=== PATIENT | female | born 1990 | race Caucasian/White ===

== ENCOUNTER 2022-05-25 09:15 | Emergency (ER) | payer MEDICAID, SELFPAY ==
--- NOTE | ~2022-05-25 | US_ITS ---
EXAMINATION: US PELVIS CLINICAL INFORMATION: Ovarian pain COMPARISON: None TECHNIQUE: Ultrasound of the pelvis is performed using both transabdominal and transvaginal transducers along with Doppler. Transvaginal imaging is performed due to inadequate visualization transabdominally. FINDINGS: Uterus: Patient is status post hysterectomy and right oophorectomy Adnexa: No abnormal right adnexal mass is appreciated. Left ovary measures 2.7 x 3.1 x 2.0 cm. Volume of 8.8 mL. No left ovarian or adnexal abnormality is appreciated. US/US pelvic and transvaginal IMPRESSION: Status post hysterectomy and right oophorectomy No significant abnormality appreciated.
[2022-05-25 09:59] VITALS: BP 117/75; PULSE 62; RESP 18; TEMP 36.6; O2SAT 99; BMI 36.6
[2022-05-25 10:21] LABS: MANUAL DIFF FLAG NO
[2022-05-25 10:23] LABS: Basophils Percent Auto 0.3 % (0-2); Eosinophils Absolute Auto 0.1 X10*3/uL (0.0-0.4); Eosinophils Percent Auto 0.7 % (0-4); Hematocrit 41.6 % (37.0-47.0); Hemoglobin 13.2 g/dl (12.0-16.0); Imm Gran Abs Auto 0.03 X10*3/uL (0.00-0.03); Imm Gran Pct Auto 0.4 % (0.0-0.4); Lymphocytes Absolute Auto 2.2 X10*3/uL (1.2-4.9); Lymphocytes Percent Auto 28.6 % (20-40); Mean Corpuscular HGB Conc 31.7 g/dl (31.0-35.0); Mean Corpuscular Volume 85.1 fL (80.0-98.0); Mean Platelet Volume 12.1 fL (9.4-12.3); Monocytes Absolute Auto 0.5 X10*3/uL (0.1-1.2); Monocytes Percent Auto 6.9 % (2-11); Neutrophils Absolute Auto 4.8 x10*3/uL (2.0-8.3); Neutrophils Percent Auto 63.1 % (45-73); Platelet Count 187 X10*3/uL (160-400); Red Blood Count 4.89 X10*6/uL (4.20-5.50); Red Cell Distribution Width 14.2 % (11.0-16.0); White Blood Count 7.6 X10*3/uL (4.8-10.8)
[2022-05-25 10:29] LABS: Appearance Urine Turbid; Color Urine Yellow; Glucose Urine UA Negative (Negative); Leukocyte Esterase Urine Trace (Negative); Nitrite Urine Negative (Negative); PH 8.5 (5.0-9.0); Specific Gravity - Urine 1.015 (1.005-1.025); UMIC TRIGGER UACC YES; Urine Blood Negative (Negative); Urine Ketones Negative (Negative); Urine Protein Negative (Neg-Trace)
[2022-05-25 10:32] LABS: Bacteria Urine Trace (None Seen); Hyaline Casts Urine 0-2 /LPF (0-2); WBC Urine 0-5 /HPF (0-5)
[2022-05-25 10:45] LABS: COVID-19 Test Negative (Negative); IDNOW Serial# BCCEAD1C
[2022-05-25 10:49] LABS: Anion Gap 13 (12-20); Blood Urea Nitrogen 10 mg/dL (9-16); Calcium 9.4 mg/dL (8.4-10.2); Carbon Dioxide 26 mmol/L (22-29); Chloride 106 mmol/L (96-108); Creatinine Clr Calc Pharmacy 120.4; Estimated Glomerular Filt Rate > 60; Glucose Random 80 mg/dL (60-115); Potassium 3.8 mmol/L (3.3-5.1); Sodium 141 mmol/L (135-145)
[2022-05-25 11:28] VITALS: BP 124/85; PULSE 61; RESP 16; TEMP 36.6; O2SAT 99
--- NOTE | 2022-05-25 11:36 | ED_ITS ---
HPI - General Adult General Chief complaint: Abdominal Pain <QUINTON Sheets Last Filed: 05/25/22 14:59> Stated complaint: bladder pain <QUINTON Sheets Last Filed: 05/25/22 14:59> Time Seen by Provider: 05/25/22 11:31 <QUINTON Sheets Last Filed: 05/25/22 14:59> Source: patient and tobacco roller <QUINTON Sheets Last Filed: 05/25/22 14:59> Mode of arrival: ambulatory <UQINTON Sheets Last Filed: 05/25/22 14:59> Limitations: language barrier <QUINTON Sheets Last Filed: 05/25/22 14:59> History of Present Illness HPI narrative: Patient is a 32 year old assigned female at with a history of hysterectomy with right sided oopherectomy presenting to the emergency department today with left sided abdominal pain and blood in her urine. Patient states that for the last few days she has had left sided abdominal pain and blood in her urine. 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 Patient denies any dizziness, lightheadedness, nausea, vomiting, fever, chills, blurry vision, double vision, loss of vision, chest pain, difficulty breathing, shortness of breath, back pain, night sweats, pain with urination, increased urinary frequency, increased urinary urgency, blood in her stool, syncope or a near syncopal episode, recent trauma or falls, bowel incontinence, bladder incontinence, bowel retention, bladder retention, or any other complaints at this time. <QUINTON Sheets - Last Filed: 05/25/22 14:59> Onset (ago): day(s) <QUINTON Sheets - Last Filed: 05/25/22 14:59> Location: abdomen <QUINTON Sheets Last Filed: 05/25/22 14:59> Radiation: non-radiation <QUINTON Sheets Last Filed: 05/25/22 14:59> Severity: mild <QUINTON Sheets Last Filed: 05/25/22 14:59> Severity scale (1-10): 3 <QUINTON Sheets - Last Filed: 05/25/22 14:59> Pain Consistency: constant <QUINTON Sheets - Last Filed: 05/25/22 14:59> Relieving factors: none <QUINTON Sheets - Last Filed: 05/25/22 14:59> Exacerbating factors: none <QUINTON Sheets - Last Filed: 05/25/22 14:59> Associated symptoms: denies other symptoms <QUINTON Sheets - Last Filed: 05/25/22 14:59> Treatments prior to arrival: none <QUINTON Sheets - Last Filed: 05/25/22 14:59> Related Data Home medications: Previous Rx's Medication Instructions Recorded cephalexin 500 mg capsule 500 mg PO Q6H 7 days #28 caps 05/25/22 <QUINTON Sheets - Last Filed: 05/25/22 14:59> Allergies/adverse reactions: Allergies Allergy/AdvReac Type Severity Reaction Status Date / Time No Known Allergies Allergy Verified 05/25/22 09:58 <QUINTON Sheets - Last Filed: 05/25/22 14:59> Review of Systems Constitutional: Constitutional: Reports no additional constitutional complaints, Denies chills, Denies fever(s) and Denies night sweats <QUINTON Sheets - Last Filed: 05/25/22 14:59> Eyes: Eyes: Reports no additional eye complaints, Denies blurry vision, Denies change in vision, Denies diplopia, Denies eye discharge, Denies loss of vision and Denies eye pain <QUINTON Sheets - Last Filed: 05/25/22 14:59> ENT: Denies dizziness <QUINTON Sheets - Last Filed: 05/25/22 14:59> Cardiovascular: Cardiovascular: Reports no additional cardiovascular complaints, Denies chest pain, Denies lightheadedness, Denies Loss of Consciousness and Denies dyspnea <QUINTON Sheets - Last Filed: 05/25/22 14:59> Respiratory: Respiratory: Reports no additional respiratory complaints and Denies dyspnea <QUINTON Sheets - Last Filed: 05/25/22 14:59> Gastrointestinal: Gastrointestinal: Reports no additional gastrointestinal complaints, Reports abdominal pain, Denies melena, Denies hematochezia, Denies change in bowel habits and Denies change in stool character <QUINTON Sheets - Last Filed: 05/25/22 14:59> Genitourinary: Genitourinary: Reports hematuria, Denies urinary frequency, Denies dysuria, Denies urinary incontinence, Denies urinary hesitancy and Denies urinary urgency <QUINTON Sheets - Last Filed: 05/25/22 14:59> Musculoskeletal: Musculoskeletal: Reports no additional musculoskeletal comp laints, Denies numbness and Denies tingling <QUINTON Sheets - Last Filed: 05/25/22 14:59> Neurologic: Denies dizziness, Denies loss of vision, Denies numbness and Denies tingling <QUINTON Sheets - Last Filed: 05/25/22 14:59> Psychiatric: Psychiatric: Reports no additional psychiatric complaints <QUINTON Sheets - Last Filed: 05/25/22 14:59> Endocrine: Endocrine: Reports no additional endocrine complaints <QUINTON Sheets - Last Filed: 05/25/22 14:59> Hematologic/Lymphatic: Hematologic/Lymphatic: Reports no additional hematologic/lymphatic complaints <QUINTON Sheets - Last Filed: 05/25/22 14:59> Allergic/Immunologic: Allergic/Immunologic: Reports no additional allergic/immunologic complaints <QUINTON Sheets - Last Filed: 05/25/22 14:59> PMF Past Medical History Attestation statement: The following information was validated with the patient. <QUINTON Sheets - Last Filed: 05/25/22 14:59> Source: old records reviewed and nursing notes reviewed <QUINTON Sheets - Last Filed: 05/25/22 14:59> Social History Social History: Social History Advance Directives: No <QUINTON Sheets - Last Filed: 05/25/22 14:59> Physical Exam ED Vital Signs: Vital Signs - 24 hr 05/25/22 09:59 05/25/22 11:28 Temperature 97.8 F 97.9 F Pulse Rate 62 61 Respiratory Rate 18 16 Blood Pressure 117/75 124/85 Pulse Oximetry 99 99 Oxygen Delivery Method Room Air Room Air BMI result Body Mass Index 36.6 <QUINTON Sheets - Last Filed: 05/25/22 14:59> Vital Signs - 24 hr 05/25/22 09:59 05/25/22 11:28 Temperature 97.8 F 97.9 F Pulse Rate 62 61 Respiratory Rate 18 16 Blood Pressure 117/75 124/85 Pulse Oximetry 99 99 Oxygen Delivery Method Room Air Room Air BMI result Body Mass Index 36.6 <Alexx Blancas MD - Last Filed: 05/29/22 11:38> Const General: cooperative, no acute distress, alert and awake <QUINTON Sheets - Last Filed: 05/25/22 14:59> Nutritional Appearance: well nourished <QUINTON Sheets - Last Filed: 05/25/22 14:59> Orientation/consciousness: patient oriented x3 <QUINTON Sheets - Last Filed: 05/25/22 14:59> Limitations: no limitations <QUINTON Sheets - Last Filed: 05/25/22 14:59> HENMT Head: Yes normal to inspection and Yes atraumatic <QUINTON Sheets - Last Filed: 05/25/22 14:59> Ears: hearing grossly normal bilaterally and external ears normal <QUINTON Sheets - Last Filed: 05/25/22 14:59> General nose exam: Normal external nose present, no nasal discharge noted and no epistaxis <QUINTON Sheets - Last Filed: 05/25/22 14:59> Face and sinus: Yes normal facial exam, No abrasion and No laceration <QUINTON Sheets - Last Filed: 05/25/22 14:59> Mouth: Normal oral and palatal mucosa present, no drooling and no muffled voice <QUINTON Sheets - Last Filed: 05/25/22 14:59> Eyes General: appearance normal, both eyes and all related structures <QUINTON Sheets - Last Filed: 05/25/22 14:59> Periorbital: periorbital findings normal <QUINTON Sheets - Last Filed: 05/25/22 1 4:59> Eyelids: Yes eyelids normal <QUINTON Sheets - Last Filed: 05/25/22 14:59> Conjunctivae: conjunctivae normal <Allie Aviles PA - Last Filed: 05/25/22 14:59> Pupils: Equal, round and reactive pupils present <Allie Aviles PA - Last Filed: 05/25/22 14:59> EOM: EOMs intact bilaterally <Allie Aviles PA - Last Filed: 05/25/22 14:59> Neck Neck: Yes normal visual inspection, Yes full ROM and Yes no lymphadenopathy <Allie Aviles PA - Last Filed: 05/25/22 14:59> Chest Chest palpation & inspection: normal inspection of the chest <Allie Aviles PA - Last Filed: 05/25/22 14:59> Resp Effort & Inspection: normal respiratory effort and able to speak in complete sentences <Allie Aviles PA - Last Filed: 05/25/22 14:59> Auscultation: clear to auscultation bilaterally <Allie Aviles CA - Last Filed: 05/25/22 14:59> Cardio Rate: regular rate <Allie Aviles PA - Last Filed: 05/25/22 14:59> Rhythm: regular rhythm <Allie Aviles PA - Last Filed: 05/25/22 14:59> GI Inspection: Yes normal to inspection <Allie Aviles CA - Last Filed: 05/25/22 14:59> Palpation (GI): Soft to palpation, not firm, nontender and no guarding <Allie Aviles CA - Last Filed: 05/25/22 14:59> Neuro General: patient oriented x3 and moves all extremities <Allie Aviles PA - Last Filed: 05/25/22 14:59> Cranial nerves: Yes Equal, round and reactive pupils present <Allie Aviles PA - Last Filed: 05/25/22 14:59> Cognition (Neuro): normal cognition <Allie Aviles PA - Last Filed: 05/25/22 14:59> Motor exam (neuro): 5/5 motor strength present throughout <Allie Aviles PA - Last Filed: 05/25/22 14:59> Sensory Exam: Normal double simultaneous stimulation for sensation <Allie Madsenming, PA - Last Filed: 05/25/22 14:59> Coordination: [id number] test normal <Alliealdair MadsenQUINTON christie - Last Filed: 05/25/22 14:59> Extrem General: Yes normal to inspection, Yes full ROM and Yes capillary refill normal <Allie QUINTON Aviles - Last Filed: 05/25/22 14:59> Psych Appearance: grossly normal <QUINTON Sheets - Last Filed: 05/25/22 14:59> Mental Status: mental status grossly normal <QUINTON Sheets - Last Filed: 05/25/22 14:59> Affect: normal affect <QUINTON Sheets - Last Filed: 05/25/22 14:59> Attitude: cooperative <QUINTON Sheets - Last Filed: 05/25/22 14:59> Thought process: Normal thought process present <QUINTON Sheets Last Filed: 05/25/22 14:59> Thought content: Normal thought content present <QUINTON Sheets Last Filed: 05/25/22 14:59> Insight: Good insight present (Psych) <QUINTON Sheets Last Filed: 05/25/22 14:59> Medical Decision Making Medical Decision Making MDM Narrative: Patient is a 32 year old assigned female at with a history of hysterectomy and right sided oopherectomy presenting to the emergency department today with left sided abdominal pain and blood in her urine. Patient's physical exam was unremarkable. Patient's blood work was unremarkable. Patient's urine showed a urinary tract infection. Patient's transvaginal US showed no acute process of the left ovary and confirmed the absence of the uterus and the right ovary. Patient's clinical presentation is not consistent with sepsis (@1400). I explained my physical exam findings as well as all test results to the patient. I answered all questions asked by the patient. I stressed the importance of the patient taking her medication as prescribed. I stressed the importance of the patient following up with her primary care provider and an OBGYN. I stressed the importance of the patient returning to the emergency department immediately if her symptoms were to worsen or if she were to develop any dizziness, shortness of breath, difficulty breathing, chest pain, blurry vision, loss of vision, nausea, vomiting, abdominal pain, fever, chills, back pain, or any other complaints. Patient verbalized agreement and understanding with this treatment plan and discharge. <QUINTON Sheets - Last Filed: 05/25/22 14:59> Differential Diagnosis Differential Diagnoses: The differential diagnosis associated with the presentation includes <QUINTON Sheets - Last Filed: 05/25/22 14:59> UTI <QUINTON Sheets - Last Filed: 05/25/22 14:59> Lab Data MDM Lab Attestation statement: I reviewed the patient's lab results. <QUINTON Sheets - Last Filed: 05/25/22 14:59> Result Diagrams: 05/25/22 10:12 05/25/22 10:12 <QUINTON Sheets - Last Filed: 05/25/22 14:59> Labs: Lab Results 05/25/22 05/25/22 05/25/22 Range/Units 10:07 10:08 10:12 WBC 7.6 (4.8-10.8) X10*3/uL RBC 4.89 (4.20-5.50) X10*6/uL Hgb 13.2 (12.0-16.0) g/dl Hct 41.6 (37.0-47.0) % MCV 85.1 (80.0-98.0) fL MCH 27.0 (27.0-33.0) pg MCHC 31.7 (31.0-35.0) g/dl RDW 14.2 (11.0-16.0) % Plt Count 187 (160-400) X10*3/uL MPV 12.1 (9.4-12.3) fL Immature Gran % (Auto) 0.4 (0.0-0.4) % Neut % (Auto) 63.1 (45-73) % Lymph % (Auto) 28.6 (20-40) % [place] % (Auto) 6.9 (2-11) % Eos % (Auto) 0.7 (0-4) % Baso % (Auto) 0.3 (0-2) % Lymph # (Auto) 2.2 (1.2-4.9) X10*3/uL [place] # (Auto) 0.5 (0.1-1.2) X10*3/uL Eos # (Auto) 0.1 (0.0-0.4) X10*3/uL Baso # (Auto) 0.0 (0.0-0.2) X10*3/uL Abs Immat Gran (auto) 0.03 (0.00-0.03) X10*3/uL Absolute Neuts (auto) 4.8 (2.0-8.3) x10*3/uL Absolute Nucleated RBC 0.000 (0.0-0.012) X10*3/uL Nucleated RBC % (auto) 0.0 (0.0-0.2) /100WBC Sodium (135-145) mmol/L Potassium (3.3-5.1) mmol/L Chloride (96-108) mmol/L Carbon Dioxide (22-29) mmol/L Anion Gap (12-20) BUN (9-16) mg/dL Creatinine (0.5-1.4) mg/dL Estim Creat Clear Calc Estimated GFR Random Glucose (60-115) mg/dL Calcium (8.4-10.2) mg/dL Beta HCG, Quant mIU/mL Urine Color Yellow Urine Appearance Turbid Urine pH 8.5 (5.0-9.0) Ur Specific Viola 1.015 (1.005-1.025) Urine Protein Negative (Neg-Trace) mg/dL Urine Glucose (UA) Negative (Negative) mg/dL Urine Ketones Negative (Negative) mg/dL Urine Blood Negative (Negative) Urine Nitrite Negative (Negative) Ur Leukocyte Esterase Trace H (Negative) Urine RBC 3-5 H (0-2) /HPF Urine WBC 0-5 (0-5) /HPF Ur Squamous Epith Cells 6-10 (0-2) /HPF Urine Bacteria Trace (None Seen) Hyaline Casts 0-2 (0-2) /LPF COVID-19 (NAHOMI) Negative (Negative) COVID-19 Clin Com See Note 05/25/22 Range/Units 10:12 WBC (4.8-10.8) X10*3/uL RBC (4.20-5.50) X10*6/uL Hgb (12.0-16.0) g/dl Hct (37.0-47.0) % MCV (80.0-98.0) fL MCH (27.0-33.0) pg MCHC (31.0-35.0) g/dl RDW (11.0-16.0) % Plt Count (160-400) X10*3/uL MPV (9.4-12.3) fL Immature Gran % (Auto) (0.0-0.4) % Neut % (Auto) (45-73) % Lymph % (Auto) (20-40) % [place] % (Auto) (2-11) % Eos % (Auto) (0-4) % Baso % (Auto) (0-2) % Lymph # (Auto) (1.2-4.9) X10*3/uL [place] # (Auto) (0.1-1.2) X10*3/uL Eos # (Auto) (0.0-0.4) X10*3/uL Baso # (Auto) (0.0-0.2) X10*3/uL Abs Immat Gran (auto) (0.00-0.03) X10*3/uL Absolute Neuts (auto) (2.0-8.3) x10*3/uL Absolute Nucleated RBC (0.0-0.012) X10*3/uL Nucleated RBC % (auto) (0.0-0.2) /100WBC Sodium 141 (135-145) mmol/L Potassium 3.8 (3.3-5.1) mmol/L Chloride 106 (96-108) mmol/L Carbon Dioxide 26 (22-29) mmol/L Anion Gap 13 (12-20) BUN 10 (9-16) mg/dL Creatinine 0.71 (0.5-1.4) mg/dL Estim Creat Clear Calc 120.4 Estimated GFR > 60 Random Glucose 80 (60-115) mg/dL Calcium 9.4 (8.4-10.2) mg/dL Beta HCG, Quant < 2 mIU/mL Urine Color Urine Appearance Urine pH (5.0-9.0) Ur Specific Viola (1.005-1.025) Urine Protein (Neg-Trace) mg/dL Urine Glucose (UA) (Negative) mg/dL Urine Ketones (Negative) mg/dL Urine Blood (Negative) Urine Nitrite (Negative) Ur Leukocyte Esterase (Negative) Urine RBC (0-2) /HPF Urine WBC (0-5) /HPF Ur Squamous Epith Cells (0-2) /HPF Urine Bacteria (None Seen) Hyaline Casts (0-2) /LPF COVID-19 (NAHOMI) (Negative) COVID-19 Clin Com <QUINTON Sheets - Last Filed: 05/25/22 14:59> Lab Results 05/25/22 05/25/22 05/25/22 Range/Units 10:07 10:08 10:12 WBC 7.6 (4.8-10.8) X10*3/uL RBC 4.89 (4.20-5.50) X10*6/uL Hgb 13.2 (12.0-16.0) g/dl Hct 41.6 (37.0-47.0) % MCV 85.1 (80.0-98.0) fL MCH 27.0 (27.0-33.0) pg MCHC 31.7 (31.0-35.0) g/dl RDW 14.2 (11.0-16.0) % Plt Count 187 (160-400) X10*3/uL MPV 12.1 (9.4-12.3) fL Immature Gran % (Auto) 0.4 (0.0-0.4) % Neut % (Auto) 63.1 (45-73) % Lymph % (Auto) 28.6 (20-40) % [place] % (Auto) 6.9 (2-11) % Eos % (Auto) 0.7 (0-4) % Baso % (Auto) 0.3 (0-2) % Lymph # (Auto) 2.2 (1.2-4.9) X10*3/uL [place] # (Auto) 0.5 (0.1-1.2) X10*3/uL Eos # (Auto) 0.1 (0.0-0.4) X10*3/uL Baso # (Auto) 0.0 (0.0-0.2) X10*3/uL Abs Immat Gran (auto) 0.03 (0.00-0.03) X10*3/uL Absolute Neuts (auto) 4.8 (2.0-8.3) x10*3/uL Absolute Nucleated RBC 0.000 (0.0-0.012) X10*3/uL Nucleated RBC % (auto) 0.0 (0.0-0.2) /100WBC Sodium (135-145) mmol/L Potassium (3.3-5.1) mmol/L Chloride (96-108) mmol/L Carbon Dioxide (22-29) mmol/L Anion Gap (12-20) BUN (9-16) mg/dL Creatinine (0.5-1.4) mg/dL Estim Creat Clear Calc Estimated GFR Random Glucose (60-115) mg/dL Calcium (8.4-10.2) mg/dL Beta HCG, Quant mIU/mL Urine Color Yellow Urine Appearance Turbid Urine pH 8.5 (5.0-9.0) Ur Specific Viola 1.015 (1.005-1.025) Urine Protein Negative (Neg-Trace) mg/dL Urine Glucose (UA) Negative (Negative) mg/dL Urine Ketones Negative (Negative) mg/dL Urine Blood Negative (Negative) Urine Nitrite Negative (Negative) Ur Leukocyte Esterase Trace H (Negative) Urine RBC 3-5 H (0-2) /HPF Urine WBC 0-5 (0-5) /HPF Ur Squamous Epith Cells 6-10 (0-2) /HPF Urine Bacteria Trace (None Seen) Hyaline Casts 0-2 (0-2) /LPF COVID-19 (NAHOMI) Negative (Negative) COVID-19 Clin Com See Note 05/25/22 Range/Units 10:12 WBC (4.8-10.8) X10*3/uL RBC (4.20-5.50) X10*6/uL Hgb (12.0-16.0) g/dl Hct (37.0-47.0) % MCV (80.0-98.0) fL MCH (27.0-33.0) pg MCHC (31.0-35.0) g/dl RDW (11.0-16.0) % Plt Count (160-400) X10*3/uL MPV (9.4-12.3) fL Immature Gran % (Auto) (0.0-0.4) % Neut % (Auto) (45-73) % Lymph % (Auto) (20-40) % [place] % (Auto) (2-11) % Eos % (Auto) (0-4) % Baso % (Auto) (0-2) % Lymph # (Auto) (1.2-4.9) X10*3/uL [place] # (Auto) (0.1-1.2) X10*3/uL Eos # (Auto) (0.0-0.4) X10*3/uL Baso # (Auto) (0.0-0.2) X10*3/uL Abs Immat Gran (auto) (0.00-0.03) X10*3/uL Absolute Neuts (auto) (2.0-8.3) x10*3/uL Absolute Nucleated RBC (0.0-0.012) X10*3/uL Nucleated RBC % (auto) (0.0-0.2) /100WBC Sodium 141 (135-145) mmol/L Potassium 3.8 (3.3-5.1) mmol/L Chloride 106 (96-108) mmol/L Carbon Dioxide 26 (22-29) mmol/L Anion Gap 13 (12-20) BUN 10 (9-16) mg/dL Creatinine 0.71 (0.5-1.4) mg/dL Estim Creat Clear Calc 120.4 Estimated GFR > 60 Random Glucose 80 (60-115) mg/dL Calcium 9.4 (8.4-10.2) mg/dL Beta HCG, Quant < 2 mIU/mL Urine Color Urine Appearance Urine pH (5.0-9.0) Ur Specific Viola (1.005-1.025) Urine Protein (Neg-Trace) mg/dL Urine Glucose (UA) (Negative) mg/dL Urine Ketones (Negative) mg/dL Urine Blood (Negative) Urine Nitrite (Negative) Ur Leukocyte Esterase (Negative) Urine RBC (0-2) /HPF Urine WBC (0-5) /HPF Ur Squamous Epith Cells (0-2) /HPF Urine Bacteria (None Seen) Hyaline Casts (0-2) /LPF COVID-19 (NAHOMI) (Negative) COVID-19 Clin Com <Alexx Blancas MD - Last Filed: 05/29/22 11:38> Radiology Impression Radiologist Impression: My interpretation is in agreement with the radiologist's impression of this imaging study. EXAMINATION:? US PELVIS CLINICAL INFORMATION:? Ovarian pain COMPARISON: None TECHNIQUE: Ultrasound of the pelvis is performed using both transabdominal and transvaginal transducers along with Doppler. Transvaginal imaging is performed due to inadequate visualization transabdominally. FINDINGS: Uterus: Patient is status post hysterectomy and right oophorectomy Adnexa: No abnormal right adnexal mass is appreciated. Left ovary measures 2.7 x 3.1 x 2.0 cm. Volume of 8.8 mL. No left ovarian or adnexal abnormality is appreciated. US/US pelvic and transvaginal IMPRESSION: Status post hysterectomy and right oophorectomy ? No significant abnormality appreciated. Dictated By: Reji Solis MD Signed By: Electronically signed by Reji Solis MD 05/25/22 1311 <QUINTON Sheets - Last Filed: 05/25/22 14:59> Attestation Attending Attestation: I reviewed SALES ENGINEER ACCOUNT MANAGER/PA/Resident note, assessment and plan. I agree with the documentation, assessment and plan unless otherwise stated. <Alexx Blancas MD - Last Filed: 05/29/22 11:38> Discharge Plan Discharge Clinical Impression: Urinary tract infection <QUINTON Sheets - Last Filed: 05/25/22 14:59> Patient Disposition: Home, Self-Care <QUINTON Sheets - Last Filed: 05/25/22 14:59> Instructions: Urinary Tract Infection in Women (ED) <QUINTON Sheets - Last Filed: 05/25/22 14:59> Additional Instructions: Follow up with your primary care provider. Return to the emergency department immediately if your symptoms worsen or if you develop any dizziness, shortness of breath, difficulty breathing, chest pain, blurry vision, loss of vision, nausea, vomiting, abdominal pain, fever, chills, back pain, or any other complaints. Alaina un seguimiento con barrera proveedor de atenci?n primaria. Regrese al departamento de emergencias de inmediato si nathaniel s?ntomas empeoran o si presenta mareos, falta de aire, dificultad para respirar, dolor de pecho, visi?n borrosa, p?rdida de la visi?n, n?useas, v?mitos, dolor abdominal, fiebre, escalofr?os, dolor de espalda o cualquier otras quejas. <QUINTON Sheets - Last Filed: 05/25/22 14:59> Prescriptions: New cephalexin 500 mg capsule 500 mg PO Q6H 7 Days Qty: 28 0RF <QUINTON Sheets - Last Filed: 05/25/22 14:59> Referrals: [facility] Family Medicine [Provider Group] (Call to establish and follow up with a primary care provider. If you already have a primary care provider, please follow up with them. Llame para establecer y hacer un seguimiento con un proveedor de atenci?n primaria. Si ya tiene un proveedor de atenci?n primaria, alaina un seguimiento con ?l.) [facility] [Provider Group] (Call to establish and follow up with a primary care provider. If you already have a primary care provider, please follow up with them. Llame para establecer y hacer un seguimiento con un proveedor de atenci?n primaria. Si ya tiene un proveedor de atenci?n primaria, alaina un seguimiento con ?l.) [facility] [Provider Group] (Call to establish and follow up with a primary care provider. If you already have a primary care provider, please follow up with them. Llame para establecer y hacer un seguimiento con un proveedor de atenci?n primaria. Si ya tiene un proveedor de atenci?n primaria, alaina un seguimiento con ?l.) Nicolas Portillo MD [Physician] - (Call to establish and follow up with an OBGYN. Llame para establecer y hacer un seguimiento con un obstetra y ginec?logo.) <QUINTON Sheets - Last Filed: 05/25/22 14:59> Stand Alone Forms: Work/School Release <QUINTON Sheets - Last Filed: 05/25/22 14:59> Interventions: ED Discharge Assessment Last Done: 05/25/22 14:01 <QUINTON Sheets - Last Filed: 05/25/22 14:59> Discharge Date/Time: 05/25/22 14:01 <QUINTON Sheets - Last Filed: 05/25/22 14:59> Print Language: Luxembourger <QUINTON Sheets - Last Filed: 05/25/22 14:59>
[2022-05-25 12:36] LABS: HCG Quantitative < 2 mIU/mL
== END 2022-05-25 14:01 | disposition home or self-care (01) ==
PROVIDERS: Physician Assistant Medical; Emergency Provider Emergency Medicine
DX: N39.0 Urinary tract infection, site not specified (principal); R10.9 Unspecified abdominal pain; Z20.822 Contact with and (suspected) exposure to COVID-19; Z90.710 Acquired absence of both cervix and uterus
CPT/HCPCS: 76830; 76856; 80048; 81001; 84702; 85025; 87635; 99282; 99283; 99284